=== PATIENT | female | born 1950 | race Caucasian/White ===

== ENCOUNTER → 2016-08-03 | Outpatient (CLI) | payer BC ==
--- NOTE | 2016-08-03 08:52 | CT ---
EXAMINATION TYPE: CT abdomen wo con DATE OF EXAM: 08/03/2016 8:33 AM COMPARISON: NONE HISTORY: abdominal pain not further specified per order. Epigastric pain for 2.[address] DLP: 735.7 mGycm Automated exposure control for dose reduction was used. TECHNIQUE: Helical acquisition of images was performed from the lung bases through the top of iliac crest to include entire abdomen. CONTRAST: Performed with Oral Contrast and without IV contrast. FINDINGS: Within the limitations of a noncontrast study, the following observations are made. LUNG BASES: Cardiomegaly is noted. There is scattered atelectatic change present. LIVER/GB: Gallbladder is surgically absent. Surgical clips suspected on axial image 31. Liver is isod ense relative to spleen consistent with diffuse fatty infiltration. Anatomical variant of liver exten ding below left hemidiaphragm is noted. PANCREAS: No significant abnormality is seen. SPLEEN: Splenomegaly is seen measuring 14.2 cm on long axis on axial image 28. ADRENALS: No significant abnormality is seen. KIDNEYS: No renal stones or hydronephrosis is present bilaterally. BOWEL: The oral contrast reaches level of splenic flexure. There is no suspicious small or large bow el dilatation. There is partial visualization of a [place] ventral wall hernia or eventration below the umbilicus on axial image 76-containing nondilated small bowel loops. LYMPH NODES: No greater than 1 cm abdominal lymph nodes are clearly seen. OSSEOUS STRUCTURES: There is some multilevel spurring in the thoracic spine. OTHER: There is unusual vascular prominence with multiple small vessels coursing throughout the mesen joshua more prominent anteriorly. Etiology uncertain. There is fairly moderate atherosclerotic change o f the abdominal aorta extending into pelvic branch vessels. There is generalized fat replaced atrophy of the right rectus muscle. There is vertical scar from valentine or surgery from the umbilicus extending inferiorly in the midline noted. There is moderate sized fat-containing umbilical hernia noted. IMPRESSION: 1. PARTIAL VISUALIZATION OF [place] VENTRAL WALL HERNIA OR PROMINENT EVENTRATION BELOW UMBILICUS CO NTAINING NONOBSTRUCTED SMALL BOWEL LOOP. 2. SPLENOMEGALY IS SEEN AND MAY WARRANT FURTHER CLINICAL WORKUP. 3. UNUSUAL PROMINENCE OF MESENTERIC VESSELS, ETIOLOGY UNCERTAIN, ONE MUST CONSIDER COLLATERAL FLOW RE LATED TO ARTERIAL VASCULAR DISEASE. CONSIDER CTA OR MRA OF THE ABDOMEN TO FURTHER EVALUATE BASED ON C LINICAL CORRELATION. PATIENT MAY ALSO BENEFIT FROM SARITA STUDY. 4. NO BOWEL OBSTRUCTION IS PRESENT.
== END ==
LOC: RADCTMAIN 07:37
PROVIDERS: ATTEND Family Medicine
DX: K43.9 Ventral hernia without obstruction or gangrene (principal); R16.1 Splenomegaly, not elsewhere classified
CPT/HCPCS: 74150